=== PATIENT | female | born 1985 | race Caucasian/White ===

== ENCOUNTER 2018-06-24 11:26 | Emergency (ER) | payer SELFPAY ==
[~2018-06-24] VITALS: Ht 170.2 cm; Wt 68.4 kg
[~2018-06-24 11:26] MED LIST: BUSPAR10 MG PO; BUSPAR15 MG PO; DILAUDID2 MG PO; EFFEXOR37.5 MG PO; FLAGYL500 MG PO; MOTRIN600 MG PO; MOTRIN800 MG PO; NOHOMEMEDS; PAXIL CR37.5 MG PO; PAXIL10 MG PO; TRI-SPRINTEC1 EACH PO; TYLENOL WITH C1 EACH PO
[2018-06-24] MEDS ORDERED: AMOXICILLIN500 MG PO (13:21)
[2018-06-24 13:29] VITALS: BP 108/91
== END 2018-06-24 13:30 | disposition home or self-care (01) ==
LOC: EME 11:26 → EXP 11:26
DX: J02.9 Acute pharyngitis, unspecified (principal); F17.200 Nicotine dependence, unspecified, uncomplicated; Z88.2 Allergy status to sulfonamides; Z88.5 Allergy status to narcotic agent